=== PATIENT | female | born 1965 | race Hispanic/Latino ===

== ENCOUNTER → 2016-12-14 | Outpatient (CLI) | payer OTHER ==
[~2016-12-14] MED LIST: NORVASC5 MG PO
== END | disposition home or self-care (01) ==
LOC: EKG 09:01
DX: R00.1 Bradycardia, unspecified (principal); R94.31 Abnormal electrocardiogram [ECG] [EKG]; K46.0 Unspecified abdominal hernia with obstruction, without gangrene
CPT/HCPCS: 93005

== ENCOUNTER 2016-12-21 12:10 | Day surgery (SDC) | payer OTHER ==
[~2016-12-21] VITALS: Ht 157.5 cm; Wt 92.9 kg
[2016-12-21 13:01] VITALS: BP 141/66
[2016-12-21 16:11] LABS: INTERNAL CONTROL VALID? YES
[2016-12-21] MEDS ORDERED: PERCOCET 5/31 TABLET PO (18:09)
[2016-12-21 20:20] VITALS: BP 134/64
== END 2016-12-21 20:51 | disposition home or self-care (01) ==
LOC: SDC
PROVIDERS: Surgery
PROC: 0WUF4JZ Supplement Abdominal Wall with Synthetic Substitute, Percutaneous Endoscopic Approach (ICD-10-PCS; principal; 2016-12-21)
DX: K43.6 Other and unspecified ventral hernia with obstruction, without gangrene (principal); I10 Essential (primary) hypertension; Z68.39 Body mass index [BMI] 39.0-39.9, adult
CPT/HCPCS: 84703; C1781; J0131; J0330; J0690; J1100; J1170; J1885; J2250; J2405; J2710; J3010